=== PATIENT | male | born 1985 | race Hispanic/Latino ===

== ENCOUNTER 2024-10-23 20:51 | Emergency (ER) | payer SELFPAY ==
--- NOTE | 2024-10-23 22:22 | RAD REPORT ---
EXAM: Chest Single View HISTORY: 39 years Male CHEST PAIN COMPARISON: None. FINDINGS: LUNGS/PLEURA: The lungs are clear. No pleural effusions or pneumothorax. No pulmonary edema. CARDIAC/MEDIASTINUM: The cardiac silhouette is within normal limits. UPPER ABDOMEN: No significant abnormality. BONES: No acute abnormality. LINES/TUBES/OTHER: N/A IMPRESSION: No evidence of acute cardiopulmonary disease.
[2024-10-23] MEDS ORDERED: LORAZEPAM 1 MG TABLET ONE (23:14)
[2024-10-23 23:35] LABS: Absolute Lymphocytes (CBC) 1.8 K/uL (0.7-4.9); Absolute Monocytes 0.5 K/uL (0.1-1.3); Absolute Neutrophil 6.5 K/uL (1.8-8.0); Basophils % 0.5 % (0-1.3); Eosinophils % 0.5 % (0-4.4); Hematocrit 43.1 % (39.6-49.0); Hemoglobin 14.8 g/dL (13.6-17.9); Lymphocytes % 20.1 % (15.3-44.8); MCH 31.3 pg (27.0-35.0); MCHC 34.4 g/dL (32.0-36.0); MCV 91.1 fL (80-100); MPV 9.1 fL (7.6-11.3); Monocytes % 5.4 % (3.3-12.3); Neutrophils % 73.5 % (41.7-73.7); Platelets 247 thou/uL (152-406); RBC Red Blood Cell Count 4.73 M/uL (4.33-5.43); Red Cell Distribution Width 13.9 % (12.1-15.2)
[2024-10-23 23:49] LABS: Albumin 4.2 g/dL (3.4-5.0); Albumin/Globulin Ratio 1.2 (1.1-1.8); Anion Gap 10.7 mEq/L (5.0-15.0); Bilirubin Direct 0.2 mg/dL (0-0.2); Bilirubin Indirect, Calculated 0.8 mg/dL (0.2-0.8); Globulin 3.5 g/dL (2.3-3.5); Potassium 3.7 mEq/L (3.5-5.1); Protein, Total 7.7 g/dL (6.4-8.2); Troponin High Sensitivity 5.6 pg/mL (<58.9)
--- NOTE | 2024-10-23 23:59 | EDPHYS ---
Physician Documentation [facility] Name: Vishnu Rapp Age: 39 yrs Sex: Male : 1985 Arrival Date: 10/23/2024 Time: 20:51 Bed 18 Private MD: ED Physician Brandon Gallego HPI: 10/23 21:59 This 39 yrs old Male presents to ER via Ambulatory with complaints of High rt Blood Pressure, Chest Pain, Anxiety. 21:59 Patient had an acute onset of chest tightness, dyspnea with associated hypertension rt earlier this evening. Patient states that the symptoms have completely resolved, is unsure if he was anxious or not. Denies any symptoms currently. Denies other acute complaints at this time, symptoms are moderate in severity, no other aggravating or alleviating factors.. Historical: - Allergies: 21:09 No Known Allergies; cp4 - Immunization history:: Adult Immunizations up to date. - Infectious Disease History:: Denies. - Social history:: Smoking status: Reported history of juuling and/or vaping. - Family history:: not pertinent. ROS: 21:59 Constitutional: Negative for fever, chills, and weight loss, Abdomen/GI: Negative for rt abdominal pain, nausea, vomiting, diarrhea, and constipation, MS/Extremity: Negative for injury and deformity, Skin: Negative for injury, rash, and discoloration, Neuro: Negative for headache, weakness, numbness, tingling, and seizure, 21:59 Cardiovascular: Positive for chest pain, Negative for edema, 21:59 Respiratory: Positive for shortness of breath, Negative for cough, Exam: 21:59 Constitutional: This is a well developed, well nourished patient who is awake, alert, rt and in no acute distress. Head/Face: Normocephalic, atraumatic. Chest/axilla: Normal chest wall appearance and motion. Nontender with no deformity. No lesions are appreciated. Cardiovascular: Regular rate and rhythm with a normal S1 and S2. No gallops, murmurs, or rubs. Normal PMI, no JVD. No pulse deficits. Respiratory: Lungs have equal breath sounds bilaterally, clear to auscultation and percussion. No rales, rhonchi or wheezes noted. No increased work of breathing, no retractions or nasal flaring. Abdomen/GI: Soft, non-tender, with normal bowel sounds. No distension or tympany. No guarding or rebound. No evidence of tenderness throughout. Skin: Warm, dry with normal turgor. Normal color with no rashes, no lesions, and no evidence of cellulitis. MS/ Extremity: Pulses equal, no cyanosis. Neurovascular intact. Full, normal range of motion. Neuro: Awake and alert, GCS 15, oriented to person, place, time, and situation. Cranial nerves II-XII grossly intact. Motor strength 5/5 in all extremities. Sensory grossly intact. Cerebellar exam normal. Normal gait. 21:59 ECG was reviewed by the Attending Physician. Vital Signs: 21:08 BP 164 / 95; Pulse 81; Resp 17; Temp 98.2; Pulse Ox 97% ; Weight 99.79 kg; Height 5 ft. cp4 8 in. ; Pain 0/10; 22:38 BP 152 / 78; Pulse 77; Resp 16; Pulse Ox 99% ; cp4 23:54 BP 142 / 72; Pulse 77; Resp 18; Pulse Ox 98% ; cp4 10/24 00:20 BP 139 / 82; Pulse 72; Resp 16; Pulse Ox 99% ; cp4 10/23 21:08 Body Mass Index 33.45 (99.79 kg, 172.72 cm) cp4 10/23 21:08 Pain Scale: Adult cp4 MDM: 10/23 21:10 Medical Screening Exam initiated rt 10/24 00:03 Differential diagnosis: Hypertension, ACS, nonspecific chest pain, panic disorder. Data rt reviewed: vital signs, nurses notes, lab test result(s), EKG, radiologic studies. Consideration of Admission/Observation Escalation of care including admission/observation considered. Low heart score, and chronicity of symptoms, 1 set of enzymes is sufficient to rule out acute coronary syndrome, do not believe that patient requires admission for chest pain evaluation.. Independent interpretation of the following test(s) in the Emergency Department X-Ray: My interpretation is No infiltrate seen on my interpretation of x-ray images. Test considered but Not performed: CT: Low suspicion for pulmonary embolus, CT angiogram not indicated. Counseling: I had a detailed discussion with the patient and/or guardian regarding the historical points, exam findings, and any diagnostic results supporting the discharge/admit diagnosis, the presence of at least one elevated blood pressure reading (>120/80) during this emergency department visit, lab results, radiology results, the need for outpatient follow up. Response to treatment: the patient's symptoms have markedly improved after treatment. 10/23 21:14 Order name: Basic Metabolic Panel; Complete Time: 23:50 rt 10/23 21:14 Order name: CBC with Diff; Complete Time: 23:48 rt 10/23 21:14 Order name: LFT's; Complete Time: 23:50 rt 10/23 21:14 Order name: Troponin HS; Complete Time: 23:50 rt 10/23 21:14 Order name: XRAY Chest (1 view); Complete Time: 22:24 rt 10/23 21:14 Order name: EKG; Complete Time: 21:15 rt 10/23 21:14 Order name: Cardiac monitoring; Complete Time: 21:18 rt 10/23 21:14 Order name: EKG - Nurse/Tech; Complete Time: 21:18 rt 10/23 21:14 Order name: IV Saline Lock; Complete Time: 21:18 rt 10/23 21:14 Order name: Labs collected and sent; Complete Time: 21:18 rt 10/23 21:14 Order name: O2 Per Protocol; Complete Time: 21:18 rt 10/23 21:14 Order name: O2 Sat Monitoring; Complete Time: 21:18 rt EC/03 21:59 Rate is 78 beats/min. Rhythm is regular, Normal Sinus Rhythm with No ectopy. QRS [place] rt is Normal. [place] interval is normal. QRS interval is normal. QT interval is normal. No Q waves. T waves are Normal. No ST changes noted. Interpreted by me. Administered Medications: 23:21 Drug: LORazepam PO 1 mg PO once Route: PO; cp4 10/24 00:22 Follow up: Response: No adverse reaction cp4 Disposition Summary: 10/23/24 23:58 Discharge Ordered Notes: Location: Home rt Problem: new rt Symptoms: have improved rt Condition: Stable rt Diagnosis - Chest pain, unspecified rt - Elevated blood-pressure reading, without diagnosis of hypertension rt Followup: rt - With: Private Physician - When: 2 - 3 days - Reason: Discharge Instructions: - Discharge Summary Sheet rt - Nonspecific Chest Pain, Adult rt Forms: - Medication Reconciliation Form rt - Antibiotic Education rt - Prescription Opioid Use rt - Patient Portal Instructions rt - Leadership Thank You Letter rt Signatures: Brandon Person MD MD rt Alison Piedra cp4
--- NOTE | 2024-10-23 23:59 | ER ---
Nurse's Notes [facility] Name: Vishnu Rapp Age: 39 yrs Sex: Male : 1985 Arrival Date: 10/23/2024 Time: 20:51 Bed 18 Private MD: Diagnosis: Chest pain, unspecified;Elevated blood-pressure reading, without diagnosis of hypertension Presentation: 10/23 21:08 Chief complaint: Patient states: high blood pressure and he thinks anxiety with chest cp4 tightness. Coronavirus screen: Vaccine status: Patient reports receiving the 1st dose of the Covid vaccine. Client denies travel out of the [place] in the last 14 days. Ebola Screen: Patient negative for fever greater than or equal to 101.5 degrees Fahrenheit, and additional compatible Ebola Virus Disease symptoms Patient denies exposure to infectious person. Patient denies travel to an Ebola-affected area in the 21 days before illness onset. No symptoms or risks identified at this time. Initial Sepsis Screen: Does the patient meet any 2 criteria? No. Patient's initial sepsis screen is negative. Does the patient have a suspected source of infection? No. Patient's initial sepsis screen is negative. Risk Assessment: Do you want to hurt yourself or someone else? Patient reports no desire to harm self or others. Onset of symptoms was October 23, 2024. 21:08 Method Of Arrival: Ambulatory cp4 21:08 Acuity: ANGELA 3 cp4 Triage Assessment: 21:09 General: Appears in no apparent distress. comfortable, Behavior is calm, cooperative, cp4 appropriate for age. Pain: Denies pain. EENT: No signs and/or symptoms were reported regarding the EENT system. Neuro: Level of Consciousness is awake, alert, obeys commands, Oriented to person, place, time, situation. Cardiovascular: Patient's skin is warm and dry. Rhythm is sinus rhythm. Respiratory: Airway is patent Respiratory effort is even, unlabored. GI: No signs and/or symptoms were reported involving the gastrointestinal system. : No signs and/or symptoms were reported regarding the genitourinary system. Derm: No signs and/or symptoms reported regarding the dermatologic system. Musculoskeletal: No signs and/or symptoms reported regarding the musculoskeletal system. Historical: - Allergies: 21:09 No Known Allergies; cp4 - Immunization history:: Adult Immunizations up to date. - Infectious Disease History:: Denies. - Social history:: Smoking status: Reported history of juuling and/or vaping. - Family history:: not pertinent. Screenin:10 [facility] ED Fall Risk Assessment (Adult) History of falling in the last 3 months, cp4 including since admission No falls in past 3 months (0 pts) Confusion or Disorientation No (0 pts) Intoxicated or Sedated No (0 pts) Impaired Gait No (0 pts) Mobility Assist Device Used No (0 pt) Altered Elimination No (0 pt) Score/Fall Risk Level 0 - 2 = Low Risk Oriented to surroundings, Maintained a safe environment, Assessed \T\ reinforced patient's understanding of fall precautions, Hourly rounding (assess needs \T\ fall precautionary measures) done. Abuse screen: Denies threats or abuse. Abuse screen: Denies injuries from another. Nutritional screening: No deficits noted. Tuberculosis screening: No symptoms or risk factors identified. Assessment: 21:10 Reassessment: No changes from previously documented assessment. Pain: Denies pain. cp4 04 00:21 Pain: Pain began. cp4 00:21 Pain: cp4 Vital Signs: 10/23 21:08 BP 164 / 95; Pulse 81; Resp 17; Temp 98.2; Pulse Ox 97% ; Weight 99.79 kg; Height 5 ft. cp4 8 in. ; Pain 0/10; 22:38 BP 152 / 78; Pulse 77; Resp 16; Pulse Ox 99% ; cp4 23:54 BP 142 / 72; Pulse 77; Resp 18; Pulse Ox 98% ; cp4 10/24 00:20 BP 139 / 82; Pulse 72; Resp 16; Pulse Ox 99% ; cp4 10/23 21:08 Body Mass Index 33.45 (99.79 kg, 172.72 cm) cp4 10/23 21:08 Pain Scale: Adult cp4 ED Course: 10/23 20:55 Patient arrived in ED. al6 20:55 Brandon Gallego MD is Attending Physician. rt 20:59 Alison Piedra is Primary Nurse. cp4 21:09 Triage completed. cp4 21:09 Arm band placed on right wrist. Patient placed in waiting room. cp4 21:10 Bed in low position. Call light in reach. Side rails up X 1. Client placed on cp4 continuous cardiac and pulse oximetry monitoring. NIBP monitoring applied. quality assurance monitor chassis on. Pulse ox on. NIBP on. 21:10 No provider procedures requiring assistance completed. Patient maintains SpO2 cp4 saturation greater than 95% on room air. 21:17 Inserted saline lock: 20 gauge in right antecubital area, using aseptic technique. cp4 Blood collected. Flushed with 10 mL NS. 22:14 XRAY Chest (1 view) In Process Unspecified. EDMS 10/24 00:20 Provided Education on: chest pain and anxiety. cp4 00:20 intact, bleeding controlled, No redness/swelling at site. Pressure dressing applied. cp4 Administered Medications: 10/23 23:21 Drug: LORazepam PO 1 mg PO once Route: PO; cp4 10/24 00:22 Follow up: Response: No adverse reaction cp4 Medication: 10/23 21:10 VIS not applicable for this client. cp4 Outcome: 23:58 Discharge ordered by . rt 10/24 00:20 Discharged to home ambulatory, cp4 Condition: stable Discharge instructions given to patient, Instructed on discharge instructions, follow up and referral plans. Demonstrated understanding of instructions, follow-up care, 00:22 Patient left the ED. cp4 Signatures: Dispatcher [employer] Brandon Gallego MD MD rt Potter, Christina cp4 Kati Benavides
[2024-10-24 00:30] VITALS: TEMP 98.2
[2024-10-24 00:34] VITALS: BP 139/82; O2SAT 99
--- NOTE | 2024-10-24 13:20 | EKG ---
Test Date: 2024-10-23 Test Time: 21:11:14 Sleep Scientist: MORENO MEASUREMENT RESULTS: Intervals: Rate: 78 WV: 144 QRSD: 110 QT: 380 QTc: 433 [place]: P: 63 WV: 144 QRS: 55 T: 42 INTERPRETIVE STATEMENTS: Normal sinus rhythm Normal ECG No previous ECG available for comparison Electronically Signed On 10-24-24 13:18:41 CDT by Trav Escalona
== END 2024-10-24 00:22 | disposition home or self-care (01) ==
LOC: ER 20:51
DX: R07.89 Other chest pain (principal); R03.0 Elevated blood-pressure reading, without diagnosis of hypertension
CPT/HCPCS: 36415; 71045; 80048; 80076; 84484; 85025; 93005; 99284